=== PATIENT | female | born 1990 | race Caucasian/White ===

== ENCOUNTER 2017-10-25 10:45 | Emergency (ER) | payer MEDICAID, OTHER ==
[2017-10-25] MEDS ORDERED: PROCHLORPERAZINE EDISYLATE INJ 10 MG/2 ML VIAL IV ONE (12:04)
[2017-10-25] MEDS ORDERED: NORMAL SALINE 1000 ML 1,000 ML IV PRN (12:05)
[2017-10-25] MEDS ORDERED: DIPHENHYDRAMINE HCL 50 MG/ML VIAL IV ONE (12:05)
--- NOTE | 2017-10-25 12:06 | ER Document Report ---
ED Medical Screen (RME) - General Chief Complaint: Headache Stated Complaint: HEADACHE Time Seen by Provider: 10/25/17 12:00 Mode of Arrival: Ambulatory Information source: Patient Notes: 27-year-old female with a history of fibromyalgia and migraines who presents to the emergency room with a migraine for the past week that is not responding to her normal oral red and of ibuprofen, Compazine, Benadryl and Neurontin. Patient denies any recent illnesses. Patient denies fever. Patient denies recent trauma. TRAVEL OUTSIDE OF THE [place] IN LAST 30 DAYS: No - Related Data Allergies/Adverse Reactions: clindamycin Allergy (Verified 10/25/17 12:01) Past Medical History - Social History Chew tobacco use (# tins/day): No Frequency of alcohol use: None Drug Abuse: None - Past Medical History Cardiac Medical History: Reports: Hx Hypertension Neurological Medical History: Reports: Hx Migraine Renal/ Medical History: Denies: Hx Peritoneal Dialysis GI Medical History: Reports: Hx Gastroesophageal Reflux Disease, Hx Irritable Bowel Musculoskeltal Medical History: Reports Hx Fibromyalgia Psychiatric Medical History: Reports: Hx Anxiety, Hx Depression Past Surgical History: Reports: Hx Adenoidectomy, Hx Cholecystectomy, Hx Hysterectomy, Hx Tonsillectomy, Hx Tubal Ligation - Immunizations Hx Diphtheria, Pertussis, Tetanus Vaccination: Yes Physical Exam - Vital signs Vitals: Temp Pulse Resp BP Pulse Ox 98.5 F 73 16 139/75 H 98 10/25/17 11:02 10/25/17 11:02 10/25/17 11:02 10/25/17 11:02 10/25/17 11:02 Course - Vital Signs Vital signs: Temp Pulse Resp BP Pulse Ox 98.5 F 73 16 139/75 H 98 10/25/17 11:02 10/25/17 11:02 10/25/17 11:02 10/25/17 11:02 10/25/17 11:02
[2017-10-25] MEDS ORDERED: KETOROLAC TROMETHAMINE 60 MG/2 ML SDV ONE (12:53)
[2017-10-25] MEDS ORDERED: KETOROLAC TROMETHAMINE INJ/PF 30 MG/1 ML SDV IV ONE ×2 (12:53→15:11)
--- NOTE | 2017-10-25 15:14 | ER Document Report ---
ED Headache - General Chief Complaint: Headache Stated Complaint: HEADACHE Time Seen by Provider: 10/25/17 12:00 Mode of Arrival: Ambulatory Notes: 27-year-old female to the emergency department for evaluation of headache. Seen at triage. Headache was 8/10 on numeric pain scale. Received Compazine, Benadryl, Toradol. IV fluids. At time of my arrival to her room patient is sleeping. States that her headache is now only a 3/10 on a numeric pain scale. No further blurred vision. No vomiting. No neck pain. TRAVEL OUTSIDE OF THE [place] IN LAST 30 DAYS: No - HPI Patient complains to provider of: Headache, "Migraine" - Related Data Allergies/Adverse Reactions: clindamycin Allergy (Verified 10/25/17 12:01) Past Medical History - General Information source: Patient - Social History Smoking Status: Unknown if Ever Smoked Chew tobacco use (# tins/day): No Frequency of alcohol use: None Drug Abuse: None Lives with: Family Family History: Reviewed & Not Pertinent Patient has suicidal ideation: No Patient has homicidal ideation: No - Past Medical History Cardiac Medical History: Reports: Hx Hypertension Neurological Medical History: Reports: Hx Migraine Renal/ Medical History: Denies: Hx Peritoneal Dialysis GI Medical History: Reports: Hx Gastroesophageal Reflux Disease, Hx Irritable Bowel Musculoskeltal Medical History: Reports Hx Fibromyalgia Psychiatric Medical History: Reports: Hx Anxiety, Hx Depression Past Surgical History: Reports: Hx Adenoidectomy, Hx Cholecystectomy, Hx Hysterectomy, Hx Tonsillectomy, Hx Tubal Ligation - Immunizations Hx Diphtheria, Pertussis, Tetanus Vaccination: Yes Review of Systems - Review of Systems Constitutional: No symptoms reported. denies: Fever, Malaise, Weakness EENT: No symptoms reported, Blurred vision. denies: Eye pain, Nose pain, Throat swelling Cardiovascular: No symptoms reported. denies: Chest pain, Palpitations, Heart racing Respiratory: No symptoms reported Gastrointestinal: No symptoms reported Genitourinary: No symptoms reported Female Genitourinary: No symptoms reported Musculoskeletal: No symptoms reported Skin: No symptoms reported Hematologic/Lymphatic: No symptoms reported Neurological/Psychological: No symptoms reported, Headaches. denies: Weakness, Paralysis, Seizure, Speech impairment, Numbness Physical Exam - Vital signs Vitals: Temp Pulse Resp BP Pulse Ox 98.5 F 73 16 139/75 H 98 10/25/17 11:02 03/02/18 11:02 10/25/17 11:02 10/25/17 11:02 10/25/17 11:02 Interpretation: Normal - General General appearance: Appears well, Alert - HEENT Head: Normocephalic, Atraumatic Eyes: Normal Conjunctiva: Normal Cornea: Normal Pupils: PERRL Fundascopic: Normal Neck: Normal, Supple. No: Brudzinski, Meningismus, Neck mass - Respiratory Respiratory status: No respiratory distress Chest status: Nontender Breath sounds: Normal Chest palpation: Normal - Cardiovascular Rhythm: Regular Heart sounds: Normal auscultation Murmur: No - Abdominal Inspection: Normal Distension: No distension Bowel sounds: Normal Tenderness: Nontender Organomegaly: No organomegaly - Back Back: Normal, Nontender - Extremities General upper extremity: Normal inspection, Nontender, Normal color, Normal ROM , Normal temperature General lower extremity: Normal inspection, Nontender, Normal color, Normal ROM , Normal temperature, Normal weight bearing. No: Mei's sign - Neurological Neuro grossly intact: Yes Cognition: Normal Orientation: AAOx4 Moshe Coma Scale Eye Opening: Spontaneous Moshe Coma Scale Verbal: Oriented [place] Coma Scale Motor: Obeys Commands Moshe Coma Scale Total: 15 Speech: Normal Motor strength normal: LUE, RUE, LLE, RLE Sensory: Normal - Psychological Associated symptoms: Normal affect, Normal mood - Skin Skin Temperature: Warm Skin Moisture: Dry Skin Color: Normal Course - Re-evaluation Re-evalutation: 10/25/17 15:46 Sleeping. Normal neurological exam. Headache is greater than 50% better. Will DC at this time. - Vital Signs Vital signs: Temp Pulse Resp BP Pulse Ox 98.5 F 73 16 139/75 H 98 10/25/17 11:02 10/25/17 11:02 10/25/17 11:02 10/25/17 11:02 10/25/17 11:02 Discharge - Discharge Clinical Impression: Migraine headache with aura Qualifiers: Status migrainosus presence: without status migrainosus Intractability: not intractable Qualified Code(s): G43.109 - Migraine with aura, not intractable, without status migrainosus Disposition: HOME, SELF-CARE Instructions: Headache ([facility]), Intravenous Compazine for Headaches ([facility]), Pain Medication Injection ([facility]) Additional Instructions: Please follow-up with your regular doctor. Return immediately if you begin to develop headache with fever, neck stiffness, intractable vomiting or other concerns. Prescriptions: Ondansetron [Zofran Odt 4 mg Tablet] 1 - 2 tab PO Q4H PRN #15 tab.rapdis PRN Reason: For Nausea/Vomiting Referrals: ELAINE ALDRIDGE, MORGUE KEEPER [Primary Care Provider] - Follow up as needed
[2017-10-25] MEDS ORDERED: OXYCODONE-ACETAMINOPHEN 5-325 MG TABLET PO ONE (15:48)
[2017-10-25 16:47] VITALS: BP 132/81
== END 2017-10-25 16:47 | disposition home or self-care (01) ==
LOC: ER 10:45
DX: G43.109 Migraine with aura, not intractable, without status migrainosus (principal); I10 Essential (primary) hypertension; Z88.3 Allergy status to other anti-infective agents; Z90.49 Acquired absence of other specified parts of digestive tract; Z90.710 Acquired absence of both cervix and uterus
CPT/HCPCS: 99283; 96361; 96374; 96375; J1200; J1885; J0780; J7030